=== PATIENT | female | born 1955 | race African-American/Black ===

== ENCOUNTER 2020-07-04 10:56 | Inpatient (IN) | payer OTHER ==
[2020-07-01 18:18] VITALS: BMI 49.0
--- OUTSIDE RECORDS SUMMARY | 2020-07-04 11:42 | XMS ---
:1955 Author Organization [facility] Support Name Relationship Address Phone [facility] Unavailable [facility] [address] [place] [address] LAURA PARNELL MOTHER [address] [address] [place] [address] Re-disclosure Warning The records that you are about to access may contain information from federally- assisted alcohol or drug abuse programs. If such information is present, then the following federally mandated warning applies: This information has been disclosed to you from records protected by federal confidentiality rules (42 CFR part 2). The federal rules prohibit you from making any further disclosure of this information unless further disclosure is expressly permitted by the written consent of the person to whom it pertains or as otherwise permitted by 42 CFR part 2. A general authorization for the release of medical or other information is NOT sufficient for this purpose. The Federal rules restrict any use of the information to criminally investigate or prosecute any alcohol or drug abuse patient.The records that you are about to access may contain highly sensitive health information, the redisclosure of which is protected by Article 27-F of the [place] State Public Health law. If you continue you may haveaccess to information: Regarding HIV / AIDS; Provided by facilities licensed or operated by the [facility] Office of Mental Health; or Provided by the [facility] Office for People With Developmental Disabilities. If such information is present, then the following [facility] mandated warning applies: This information has been disclosed to you from confidential records which are protected by state law. State law prohibits you from making any further disclosure of this information without the specific written consent of the person to whom it pertains, or as otherwise permitted by law. Any unauthorized further disclosure in violation of state law may result in a fine or intermediate sentence or both. A general authorization for the release of medical or other information is NOT sufficient authorization for further disclosure. Insurance Providers Payer name Policy type Policy ID Covered Covered libertarian's Policy P tamy / Coverage libertarian ID relationship to [place] [employer] ormation type sumner LOCAL [id number] - [id number] 1955 [facility] Results ID Date Data Source [id number] 06/29/2020 10:20:00 AM EDT [facility] Name Value Range Interpretation Description Data Sup porting Code Source(s) Document(s ) SARS [facility] coronavirus 2 RNA This lab was ordered by [facility] and reported by [facility]. Procedure
[2020-07-04] MEDS ORDERED: BUPIVACAINE HCL/PF 0.25% (2.5MG/ML) 10 ML VIAL ONE (13:26)
[2020-07-04] MEDS ORDERED: GUM MASTIC/STORAX/MSAL/ALCOHOL 1 DRP DROPSBTL MC ONE (13:26)
[2020-07-04] MEDS ORDERED: BUPIVACAINE HCL/PF 0.5% (5 MG/ML) 30 ML VIAL IJ ONE (14:02)
[2020-07-04] MEDS ORDERED: MIDAZOLAM HCL 2 MG/2 ML SINGLE DOSE VIAL ONE (14:02)
[2020-07-04] MEDS ORDERED: ONDANSETRON 4 MG/2 ML VIAL IVPUSH PRN ×2 (14:48→17:32)
[2020-07-04] MEDS ORDERED: LACTATED RINGERS SOLUTION 1,000 ML IV SCH ×2 (15:00→17:45)
[2020-07-04] MEDS ORDERED: PROPOFOL 20 ML ONE (15:13)
[2020-07-04] MEDS ORDERED: ROCURONIUM BROMIDE 50 MG/5 ML SYRINGE ONE ×2 (15:13→15:51)
[2020-07-04] MEDS ORDERED: LIDOCAINE HCL/PF 2% SDV 5ML VIAL ONE (15:23)
[2020-07-04] MEDS ORDERED: DEXAMETHASONE SOD PHOSPHATE 4 MG/1 ML VIAL ONE (15:27)
[2020-07-04] MEDS ORDERED: SODIUM CHLORIDE 0.9% P/F 10 ML VIAL IJ ONE (15:31)
[2020-07-04] MEDS ORDERED: ceFAZolin SODIUM 1 GM VIAL ONE (15:31)
[2020-07-04] MEDS ORDERED: BUPIVACAINE HCL/PF 0.25% (2.5MG/ML) 10 ML VIAL IJ ONE ×2 (15:52→16:52)
[2020-07-04] MEDS ORDERED: SEVOFLURANE 250 ML BTL ONE (16:05)
[2020-07-04] MEDS ORDERED: DESFLURANE GAS 240 ML BOTTLE IH ONE (16:05)
[2020-07-04] MEDS ORDERED: NEOSTIGMINE METHYLSULFATE 0.5 MG/ML - 10 ML MDV ONE (16:35)
[2020-07-04] MEDS ORDERED: GLYCOPYRROLATE 0.2 MG/1 ML VIAL ONE ×2 (16:35→17:00)
[2020-07-04] MEDS ORDERED: METOPROLOL TARTRATE 5 MG/5 ML VIAL ONE (17:00)
[2020-07-04] MEDS ORDERED: HYDROmorphone HCl 2 MG/ML VIAL IVPB PRN (17:04)
--- NOTE | 2020-07-04 17:13 | OP ---
Operative Note - Note: Operative Date: 07/04/20 Pre-Operative Diagnosis: Morbid Obesity. Hypertension Operation: Laparoscopic Vertical Sleeve Gastrectomy. Laparoscopic Lysis of adhesions. Oversewing of Gastric Staple Line. Diagnostic Laparoscopy Findings: Greater curve sleeve gastrectomy performed with #[address] Large adhesions lysed in upper midline and RUQ from patients' previous abdominal surgery Post-Operative Diagnosis: Same as Pre-op (Abdominal Adhesions) Surgeon: Ferdinand Dutton Online Marketer: Sergey Gibbons Anesthesia: General Specimens Removed: Greater curve of stomach Estimated Blood Loss (mls): 50 Operative Report Dictated: Yes
[2020-07-04] MEDS ORDERED: SODIUM CHLORIDE 1,000 ML IV SCH (17:15)
[2020-07-04] MEDS ORDERED: FAMOTIDINE 20 MG/50 ML IVPB 20 MG/50 ML MG IVPB ONE (17:23)
[2020-07-04] MEDS ORDERED: METOCLOPRAMIDE HCL INJECTION 10 MG/2 ML VIAL ONE (17:24)
[2020-07-04] MEDS: METOCLOPRAMIDE HCL INJECTION 10 MG/2 ML VIAL IVPUSH SCH ×2 (17:29→22:58)
[2020-07-04] MEDS ORDERED: PROMETHAZINE HCL 25 MG/1 ML VIAL IVPUSH PRN (17:32)
[2020-07-04] MEDS ORDERED: ACETAMINOPHEN 1000 MG/100 ML VIAL (NON FORMULARY) IVPB ONE (17:33)
[2020-07-04] MEDS ORDERED: ACETAMINOPHEN INJECTION 100 ML IVPB ONE (17:37)
[2020-07-04 17:50] LABS: HEMATOCRIT 41.1 % (32.4-45.2); MCH 29.8 pg (25.7-33.7); MCHC 31.7 g/dl (32.0-36.0); MEAN CELL VOLUME 94.1 fl (80-96); MEAN PLT VOLUME 8.3 fl (7.5-11.1); PLATELET COUNT 362 K/MM3 (134-434); RBC 4.37 M/mm3 (3.60-5.2); RDW 14.4 % (11.6-15.6); WHITE BLOOD COUNT 18.4 K/mm3 (4.0-10.8)
[2020-07-04] MEDS ORDERED: FAMOTIDINE 20 MG PREMIXED IVPB IVPB ONE (17:50)
[2020-07-04 18:24] LABS: ALBUMIN 4.3 g/dl (3.4-5.0); BILIRUBIN,TOTAL 0.5 mg/dl (0.2-1); CALCIUM 9.3 mg/dl (8.5-10); CREATININE 0.7 mg/dl (0.55-1.3); POTASSIUM 3.7 mmol/L (3.5-5.1); TOT PROT 7.4 g/dl (6.4-8.2)
[2020-07-04] MEDS: HYDROmorphone HCl 2 MG/ML VIAL IVPB PRN (20:02)
[2020-07-04] MEDS: FAMOTIDINE 20 MG/50 ML IVPB 20 MG/50 ML MG IVPB SCH (21:05)
[2020-07-04 23:19] LABS: HEMATOCRIT 37.1 % (32.4-45.2); HEMOGLOBIN 12.5 GM/dl (10.7-15.3); MCH 31.1 pg (25.7-33.7); MCHC 33.8 g/dl (32.0-36.0); MEAN CELL VOLUME 92.1 fl (80-96); MEAN PLT VOLUME 8.4 fl (7.5-11.1); PLATELET COUNT 360 K/MM3 (134-434); RBC 4.03 M/mm3 (3.60-5.2); RDW 14.1 % (11.6-15.6); WHITE BLOOD COUNT 18.7 K/mm3 (4.0-10.8)
[2020-07-04 23:53] LABS: ALBUMIN 4.3 g/dl (3.4-5.0); BILIRUBIN,TOTAL 0.7 mg/dl (0.2-1); CALCIUM 9.1 mg/dl (8.5-10); CREATININE 0.7 mg/dl (0.55-1.3); POTASSIUM 4.2 mmol/L (3.5-5.1); TOT PROT 7.5 g/dl (6.4-8.2)
[2020-07-05] MEDS: METOCLOPRAMIDE HCL INJECTION 10 MG/2 ML VIAL IVPUSH SCH ×4 (05:51→22:52)
[2020-07-05] MEDS: HYDROmorphone HCl 2 MG/ML VIAL IVPB PRN (06:15)
[2020-07-05] MEDS: ONDANSETRON 4 MG/2 ML VIAL IVPUSH PRN ×2 (06:17→10:40)
--- NOTE | 2020-07-05 07:55 | PN ---
Progress Note (short form) - Note Progress Note: 65F POD1 s/p lap sleeve gastrectomy under GA-ETT. Pt doing well and denies any anesthetic complications. AVSS. Continue current regimen.
[2020-07-05 08:32] LABS: HEMATOCRIT 34.5 % (32.4-45.2); HEMOGLOBIN 11.2 GM/dl (10.7-15.3); MCHC 32.6 g/dl (32.0-36.0); MEAN PLT VOLUME 8.6 fl (7.5-11.1); PLATELET COUNT 330 K/MM3 (134-434); RBC 3.75 M/mm3 (3.60-5.2); RDW 13.9 % (11.6-15.6)
--- NOTE | 2020-07-05 09:04 | OP ---
DATE OF OPERATION: 07/04/2020 PREOPERATIVE DIAGNOSES: 1. Morbid obesity. 2. Hypertension. POSTOPERATIVE DIAGNOSES: 1. Morbid obesity. 2. Hypertension. 3. Abdominal adhesions. PROCEDURE: 1. Laparoscopic vertical sleeve gastrectomy. 2. Laparoscopic lysis of adhesions. 3. Oversewing of gastric staple line. 4. Diagnostic laparoscopy. OPERATING SURGEON: Ferdinand Dutton MD ROUNDING MACHINE OPERATOR: Sergey Gibbons MD ANESTHESIA: General. OPERATIVE PROCEDURE: The patient was brought into the operating room, placed on the OR table in the supine position. All precautions were taken initially including padding for the back and the feet and Venodyne boots were placed on both lower extremities. At that point the abdomen was prepped and draped in the usual manner. A Veress needle was placed in the left upper quadrant and a pneumoperitoneum was established. Under direct vision with a laparoscopic camera a No. 5 bladeless trocar was placed in the left upper quadrant. Through that trocar laparoscopic camera was placed. Under direct vision a No. 15 bladeless trocar was placed in the midline in the supraumbilical position and then a No. 5 bladeless trocar was placed to the left costal margin. There were noted to be a large amount of adhesions between the omentum and the anterior abdominal wall in the midline extending over to the right side of the abdomen, the right upper quadrant and also the falciform ligament. These prevented further trocars being placed, so therefore they were lysed with sharp dissection with the laparoscopic scissor and also with the LigaSure device. Once these were cleaned in the upper midline and the right upper quadrant, a No. 5 bladeless trocar was then placed in the right upper quadrant. At this juncture a Gaviota liver retractor was placed in the epigastrium to retract left lobe of the liver. The patient was then placed in 20-degree reverse Trendelenburg position by Anesthesia. The pylorus was noted on the distal stomach and from that point 6 cm would make it proximally. Here on the greater curve the operating surgeon lifted the stomach toward the anterior abdominal wall and the orthotics assistant surgeon retracted the gastrocolic ligament inferiorly. The LigaSure device was then used to dissect the gastrocolic ligament and then continuing in a superior and vertical direction the short gastric vessels all the way up the greater curve of the stomach. This continued in a superior and vertical direction until the final short gastric vessel between the superior pole of the spleen and the proximal fundus was divided. At this juncture Anesthesia advanced a No. 36 bougie which was held along the lesser curve. After the bougie was held along the lesser curve, a series of savi was performed with the first 2 being black load savi 6 cm in length along the bougie. This was followed by a series of purple load savi also 6 cm in length and also along the bougie until the final staple was fired in the left upper quadrant. The greater curve was now completely detached from the lesser curve. It should be noted that prior to firing each staple both the anterior and posterior alicia were checked that they were equal and in the area of the esophagogastric junction approximately 1 to 1.5 cm of serosa remained on the anterior and posterior surfaces. At this juncture Anesthesia inserted air into the bougie and the entire staple line was submerged under normal saline. Once the air was placed into the bougie, the entire stomach distended all the way to the pylorus. No obstruction and no leaks were noted. For further reinforcement of the staple line and to hemostasis, an Endo Stitch was used to run a suture continuous starting proximally in the fundus, continuing distally to the antrum or at the end of the staple line. When it was completed, this suture oversewing of the gastric staple line reinforced the staple line. At this juncture Surgicel was placed in the area of the reinforced staple line and the resected greater curve was removed through the No. 15 trocar site and off the field as a specimen to Pathology. The No. 15 trocar site was closed with the Endo closure device to prevent internal hernia and to prevent bleeding. Under direct vision all trocars were removed and the pneumoperitoneum was released. All trocar sites received 0.25% Marcaine. The No. 15 midline was closed with 3-0 Vicryl in the subcutaneous tissue and then all trocar sites were closed with 4-0 Biosyn in a subcuticular fashion. Dressings were applied. The patient awoke from anesthesia and transferred out of the operating room to the recovery room in stable condition. ESTIMATED BLOOD LOSS: 50 mL Freddy [id number]
[2020-07-05 09:15] LABS: CREATININE 0.5 mg/dl (0.55-1.3)
[2020-07-05 09:16] LABS: ALBUMIN 3.8 g/dl (3.4-5.0); BILIRUBIN,TOTAL 0.6 mg/dl (0.2-1); CALCIUM 8.9 mg/dl (8.5-10); TOT PROT 6.7 g/dl (6.4-8.2)
[2020-07-05] MEDS: FAMOTIDINE 20 MG/50 ML IVPB 20 MG/50 ML MG IVPB SCH ×2 (09:41→21:12)
[2020-07-05] MEDS ORDERED: ACETAMINOPHEN 325 MG TABLET (FP) PO PRN (12:33)
[2020-07-05] MEDS ORDERED: traMADol HCL 50 MG TABLET PO PRN (12:38)
--- NOTE | 2020-07-05 12:42 | PN ---
Progress Note (short form) - Note Progress Note: POD#1 Afebrile; VSS Pt doing well slight nausea Ambulating well P/E- Abd- all trocar sites clean, dry WBC-14.0 (decreased) H/H-11.2/34.5 UGI- no leak, no obstruction P- Begin PO clear liquids- 2 oz PO TID Cont DVT prophylaxis Cont ambulation
[2020-07-05] MEDS ORDERED: SODIUM CHLORIDE 1,000 ML IV SCH (12:45)
[2020-07-05] MEDS: ACETAMINOPHEN 325 MG TABLET (FP) PO PRN (15:29)
[2020-07-06] MEDS: METOCLOPRAMIDE HCL INJECTION 10 MG/2 ML VIAL IVPUSH SCH ×2 (05:47→10:45)
[2020-07-06] MEDS: ACETAMINOPHEN 325 MG TABLET (FP) PO PRN (05:53)
[2020-07-06 08:50] LABS: ALBUMIN 3.8 g/dl (3.4-5.0); BILIRUBIN,TOTAL 0.8 mg/dl (0.2-1); CALCIUM 8.9 mg/dl (8.5-10); CREATININE 0.6 mg/dl (0.55-1.3); POTASSIUM 3.7 mmol/L (3.5-5.1); TOT PROT 6.4 g/dl (6.4-8.2)
[2020-07-06 08:56] LABS: HEMATOCRIT 34.1 % (32.4-45.2); HEMOGLOBIN 11.2 GM/dl (10.7-15.3); MCH 29.8 pg (25.7-33.7); MCHC 32.8 g/dl (32.0-36.0); MEAN CELL VOLUME 91.1 fl (80-96); MEAN PLT VOLUME 8.4 fl (7.5-11.1); PLATELET COUNT 327 K/MM3 (134-434); RBC 3.74 M/mm3 (3.60-5.2); RDW 14.1 % (11.6-15.6); WHITE BLOOD COUNT 10.4 K/mm3 (4.0-10.8)
[2020-07-06] MEDS: FAMOTIDINE 20 MG/50 ML IVPB 20 MG/50 ML MG IVPB SCH (10:25)
[2020-07-06 11:10] VITALS: BP 145/60; PULSE 69; TEMP 98.9
--- NOTE | 2020-07-07 15:40 | PATH ---
Surgical Pathology Report Patient Name: KHADRA PARNELL Med. Rec. #: [id number] /Age/Gender: 1955 (Age: 65) / F Account: [id number] Location: [facility] MED-SURG Taken: 07/04/2020 Received: 07/04/2020 Reported: 07/07/2020 Physicians: Ferdinand Dutton M.D. Specimen(s) Received GREATER CURVATURE OF STOMACH Clinical History Morbid obesity Final Diagnosis GREATER CURVATURE OF STOMACH, LAPAROSCOPIC GASTRIC SLEEVE EXCISION: PORTION OF STOMACH SHOWING MILD CHRONIC MUCOSAL INFLAMMATION. IMMUNOSTAIN IS NEGATIVE FOR H. PYLORI ORGANISMS. ONE SMALL BENIGN PERIGASTRIC LYMPH NODE. Electronically Signed Afshan Rubin M.D. Gross Description Received in formalin, labeled "greater curvature of stomach," is a 63 gram, 16.5 x 3.0 x 2.0 cm. portion of stomach with a stapled margin of resection. The serosa is mack-garner with minimal attached fat. The mucosa is mack-pink with normal folds. No mucosal masses are identified. Security Systems Technician sections are submitted in one cassette. /07/06/2020 [facility]/07/06/2020
== END 2020-07-06 11:15 | disposition home or self-care (01) | DRG 621 ==
LOC: FM/S 10:56
PROVIDERS: ADMIT Surgery; ATTEND Surgery
PROC: 0DNW4ZZ Release Peritoneum, Percutaneous Endoscopic Approach (ICD-10-PCS; 2020-07-04)
PROC: 0DB64Z3 Excision of Stomach, Percutaneous Endoscopic Approach, Vertical (ICD-10-PCS; principal; 2020-07-04 15:44)
DX: E66.01 Morbid (severe) obesity due to excess calories (principal); I10 Essential (primary) hypertension; K66.0 Peritoneal adhesions (postprocedural) (postinfection); Z68.42 Body mass index [BMI] 45.0-49.9, adult
CPT/HCPCS: 36415; 71046-TC-FY; 74240-TC-FY; 80053; 85027; 88305-TC; 94760; J0131; Q9967

== ENCOUNTER 2023-03-26 14:03 | Emergency (ER) | payer OTHER ==
[2023-03-26 14:18] VITALS: BP 162/78; PULSE 75; RESP 16; TEMP 97.7; BMI 50.8
[2023-03-26] MEDS ORDERED: BUPIVACAINE HCL/PF 0.5% (5 MG/ML) 30 ML VIAL IJ ONE (15:26)
[2023-03-26] MEDS ORDERED: LIDOCAINE HCL 1%, 10 MG/ML (50 mL VIAL) INF ONE (15:27)
[2023-03-26] MEDS ORDERED: BUPIVACAINE HCL/PF 0.5% (5MG/ML) 10 ML VIAL ONE (15:28)
[2023-03-26] MEDS ORDERED: LIDOCAINE HCL/PF 1% SDV 5ML VIAL ONE (15:34)
== END 2023-03-26 16:08 | disposition home or self-care (01) ==
LOC: JER 14:03 → JERFT 14:03
PROC: 3E0T3BZ Introduction of Anesthetic Agent into Peripheral Nerves and Plexi, Percutaneous Approach (ICD-10-PCS; principal; 2023-03-26)
DX: K08.89 Other specified disorders of teeth and supporting structures (principal); R68.84 Jaw pain
CPT/HCPCS: 99283-25